=== PATIENT | male | born 1985 | race Caucasian/White ===

== ENCOUNTER 2024-09-14 01:43 | Emergency (ER) | payer MEDICAID ==
[~2024-09-14] VITALS: Ht 172.7 cm; Wt 86.0 kg
[2024-09-14 01:51] VITALS: BP 193/123; PULSE 115; RESP 18; TEMP 36.9; O2SAT 95; O2SAT 97
[2024-09-14] MEDS: LIDOCAINE HCL 1% 20ML VIAL INFIL ONE (02:00)
[2024-09-14] MEDS ORDERED: IBUP-2028 MT (03:25)
[2024-09-14] MEDS: TETANUS, DIPHTHERIA, PERTUSSIS VAC/PF 0.5ML (>10YR OLD) IM ONE (03:33)
== END 2024-09-14 03:35 | disposition home or self-care (01) ==
LOC: ER 01:43
DX: S01.01XA Laceration without foreign body of scalp, initial encounter (principal); I10 Essential (primary) hypertension; X58.XXXA Exposure to other specified factors, initial encounter; Y93.89 Activity, other specified; Y92.89 Other specified places as the place of occurrence of the external cause; Y99.8 Other external cause status; Y09 Assault by unspecified means
CPT/HCPCS: 12004; 90471; 90715; 99285